=== PATIENT | female | born 1995 | race Caucasian/White ===

== ENCOUNTER 2016-12-29 21:04 | Emergency (ER) | payer MEDICAID ==
[~2016-12-29] VITALS: Ht 154.9 cm; Wt 70.6 kg
[~2016-12-29 21:04] MED LIST: HYDRO2.5%T TOP; MICO2CRE4 TOP; PRED20 PO
[2016-12-29 21:07] VITALS: BP 106/79; PULSE 110; RESP 20; TEMP 98.3; O2SAT 97
[2016-12-29 21:44] LABS: BLOOD, URINE NEG (NEG); GLUCOSE,URINE NEG (NEG); KETONE, URINE TRACE mg/dL (NEG); NITRITE,URINE NEG (NEG)
[2016-12-29] MEDS ORDERED: ONDANSETRON HCL 4 MG/2 ML VIAL IV PUSH ONE (21:45)
[2016-12-29] MEDS ORDERED: SODIUM CHLOR 0.9% 1000 ML INJ 1,000 ML IV ONE ×2 (21:45→22:30)
[2016-12-29] MEDS ORDERED: PANTOPRAZOLE SODIUM 40 MG VIAL IVP ONE (21:45)
[2016-12-29 21:51] LABS: BACTERIA, URINE RARE /hpf; COMMENT (UR) CULT NOT INDICATED; CULTURE IF INDICATED CULT NOT INDICATED; SQUAMOUS EPITHELIAL CELL URINE > 8 /hpf (0-5); URINE COLOR YELLOW (YELLW/STRAW); WBC, URINE 0-2 /hpf (0-5)
--- NOTE | 2016-12-29 21:52 | PD ---
HPI Chief Complaint: Flank/Kidney Pain Time Seen by Provider: 21:27 Travel History International Travel<30 days: No Contact w/Intl Traveler<30days: No Traveled to known affect area: No History of Present Illness HPI Patient 21-year-old female who presents to emergency room complaints of bilateral flank pain with dysuria, urinary urgency and frequency, hesitancy and dysuria. Patient reports that she has not been feeling well since yesterday, that she has been having epigastric pain with nausea and vomiting. Patient went to an outside hospital and had a blood work as well as CT of abdomen and pelvis with contrast, reports that they were looking for a gallbladder problem but reports that her gallbladder was "fine." Patient was told that she had a white blood cell count of 17,000 and had bacteria in her urine, reports that she was sent home with a prescription for [place] as well as for Zofran. Patient reports that she still is not feeling any better, reports that she has symptoms similar to when she has had a bladder infection the past. Patient reports "I think that I have a bladder infection and I am not sure why I wasn't treated for one last night." Patient denies any fevers or chills, reports that she has been having episodes of diarrhea. PFSH Past Medical History Developmental Delay: No Diminished Hearing: No Genitourinary: Yes (UTI'S) Neurologic: Yes (VASO-VAGAL RESPONSE; SYNCOPE) Immunizations Current: Yes ?: Unknown LMP: 2 WEEKS AGO : 1 Para: 1 Past Surgical History Surgical History: No Previous Surgery Social History Alcohol Use: No Tobacco Use: No Substance Use: No Allergies-Medications (Allergen,Severity, Reaction): Coded Allergies: Dilaudid (Verified Allergy, Severe, throat closes, 12/29/16) Macrobid (Verified Allergy, Severe, TONGUE SWELLS, 12/29/16) Rocephin (Verified Allergy, Severe, tightness of chest, 12/29/16) Reported Meds & Prescriptions Reported Meds & Active Scripts Active Deltasone (Prednisone) 20 Mg Tab 20 Mg PO BID Miconazole Nitrate 2 % Cre 1 Applic TOP BID 30 Days APPLY TO: Hydrocortisone 2.5 % Oin 2.5 % TOP BID 30 Days Review of Systems General / Constitutional: No: Fever, Chills Eyes: No: Visual changes HENT: No: Headaches Cardiovascular: No: Chest Pain or Discomfort Respiratory: No: Shortness of Breath Gastrointestinal: Positive: Nausea, Vomiting, No: Diarrhea, Abdominal Pain Genitourinary: Positive: Urgency, Frequency, Dysuria, Flank Pain, No: Pelvic Pain Musculoskeletal: No: Pain Skin: No Rash Neurologic: No: Weakness Psychiatric: No: Depression Endocrine: No: Polydipsia Hematologic/Lymphatic: No: Easy Bruising Physical Exam Narrative GENERAL: Mild distress SKIN: Focused skin assessment warm/dry. HEAD: Atraumatic. Normocephalic. EYES: Pupils equal and round. No scleral icterus. No injection or drainage. ENT: No nasal bleeding or discharge. Mucous membranes pink and moist. NECK: Trachea midline. No JVD. CARDIOVASCULAR: Regular rate and rhythm. No murmur appreciated. RESPIRATORY: No accessory muscle use. Clear to auscultation. Breath sounds equal bilaterally. GASTROINTESTINAL: Abdomen soft, non-tender, nondistended. Hepatic and splenic margins not palpable. Patient with bilateral flank pain MUSCULOSKELETAL: No obvious deformities. No clubbing. No cyanosis. No edema. NEUROLOGICAL: Awake and alert. No obvious cranial nerve deficits. Motor grossly within normal limits. Normal speech. PSYCHIATRIC: Appropriate mood and affect; insight and judgment normal. Data Data Last Documented VS Vital Signs Date Time Temp Pulse Resp B/P Pulse Ox O2 Delivery O2 Flow Rate FiO2 12/29/16 21:07 98.3 110 20 106/79 97 Orders Urinalysis - C+S If Indicated (12/29/16 21:33) Complete Blood Count With Diff (12/29/16 21:41) Comprehensive Metabolic Panel (12/29/16 21:41) Ed Urine Pregnancytest Poc (12/29/16 21:41) Sodium Chlor 0.9% 1000 Ml Inj (Ns 1000 M (12/29/16 21:45) Ondansetron Inj (Zofran Inj) (12/29/16 21:45) Pantoprazole Inj (Protonix Inj) (12/29/16 21:45) Sodium Chlor 0.9% 1000 Ml Inj (Ns 1000 M (12/29/16 22:30) Potassium Chloride (Kcl) (12/29/16 22:45) Labs Laboratory Tests Test 12/29/16 12/29/16 21:40 22:00 Urine Color YELLOW Urine Turbidity SLIGHT Urine pH 6.0 Urine Specific [place] 1.026 Urine Protein TRACE mg/dL Urine Glucose (UA) NEG mg/dL Urine Ketones TRACE mg/dL Urine Occult Blood NEG Urine Nitrite NEG Urine Bilirubin NEG Urine Leukocyte Esterase NEG Urine WBC 0-2 /hpf Urine Squamous Epithelial > 8 /hpf Cells Urine Bacteria RARE /hpf Microscopic Urinalysis Comment CULT NOT INDICATED White Blood Count 10.3 TH/MM3 Red Blood Count 5.71 MIL/MM3 Hemoglobin 11.2 GM/DL Hematocrit 34.6 % Mean Corpuscular Volume 60.6 FL Mean Corpuscular Hemoglobin 19.6 PG Mean Corpuscular Hemoglobin 32.4 % Concent Red Cell Distribution Width 13.9 % Platelet Count 198 TH/MM3 Mean Platelet Volume 8.3 FL Neutrophils (%) (Auto) 82.8 % Lymphocytes (%) (Auto) 8.0 % Monocytes (%) (Auto) 8.2 % Eosinophils (%) (Auto) 0.7 % Basophils (%) (Auto) 0.3 % Neutrophils # (Auto) 8.6 TH/MM3 Lymphocytes # (Auto) 0.8 TH/MM3 Monocytes # (Auto) 0.8 TH/MM3 Eosinophils # (Auto) 0.1 TH/MM3 Basophils # (Auto) 0.0 TH/MM3 CBC Comment AUTO DIFF Differential Comment AUTO DIFF CONFIRMED Basophilic Stippling FAINT Tear Drop Cells 1+ Ovalocytes 1+ Sodium Level 139 MEQ/L Potassium Level 3.1 MEQ/L Chloride Level 104 MEQ/L Carbon Dioxide Level 28.6 MEQ/L Anion Gap 6 MEQ/L Blood Urea Nitrogen 15 MG/DL Creatinine 0.69 MG/DL Estimat Glomerular Filtration 106 ML/MIN Rate Random Glucose 90 MG/DL Calcium Level 7.6 MG/DL Total Bilirubin 0.7 MG/DL Aspartate Amino Transf 16 U/L (AST/SGOT) Alanine Aminotransferase 21 U/L (ALT/SGPT) Alkaline Phosphatase 58 U/L Total Protein 7.1 GM/DL Albumin 3.5 GM/DL [facility] Medical Decision Making Medical Screen Exam Complete: Yes Emergency Medical Condition: Yes Interpretation(s) Vital Signs Date Time Temp Pulse Resp B/P Pulse Ox O2 Delivery O2 Flow Rate FiO2 12/29/16 21:07 98.3 110 20 106/79 97 Differential Diagnosis Differential includes pyelonephritis, cystitis, gastroenteritis, electrolyte abnormality Narrative Course Patient is a 21-year-old female who presents to emergency room with complaints of bilateral flank pain with dysuria, urinary urgency and frequency. Patient was seen last night at [facility] and had studies including ct studies of her abdomen and pelvis. She was told that she had a gi bug and was sent home on norco and zofran. Patient reports that she is still not feeling any better and thinks that she may have a bladder/kidney infection. Reports that she was told that she had bacteria in her urine yesterday but wasn' t treated for a uti. Vital signs reviewed. Patient is tachycardic with HR of 110. Labs including UA ordered. IV fluids as well as Zofran ordered as well. Laboratory Tests Test 12/29/16 12/29/16 21:40 22:00 Urine Color YELLOW (YELLW/STRAW) Urine Turbidity SLIGHT (CLEAR) Urine pH 6.0 (5.0-8.5) Urine Specific [place] 1.026 (1.002-1.035) Urine Protein TRACE mg/dL (NEG-TRACE) Urine Glucose (UA) NEG mg/dL (NEG) Urine Ketones TRACE mg/dL (NEG) Urine Occult Blood NEG (NEG) Urine Nitrite NEG (NEG) Urine Bilirubin NEG (NEG) Urine Leukocyte Esterase NEG (NEG) Urine WBC 0-2 /hpf (0-5) Urine Squamous Epithelial > 8 /hpf (0-5) Cells Urine Bacteria RARE /hpf (NONE) Microscopic Urinalysis Comment CULT NOT INDICATED White Blood Count 10.3 TH/MM3 (4.0-11.0) Red Blood Count 5.71 MIL/MM3 (4.00-5.30) Hemoglobin 11.2 GM/DL (11.6-15.3) Hematocrit 34.6 % (35.0-46.0) Mean Corpuscular Volume 60.6 FL (80.0-100.0) Mean Corpuscular Hemoglobin 19.6 PG (27.0-34.0) Mean Corpuscular Hemoglobin 32.4 % Concent (32.0-36.0) Red Cell Distribution Width 13.9 % (11.6-17.2) Platelet Count 198 TH/MM3 (150-450) Mean Platelet Volume 8.3 FL (7.0-11.0) Neutrophils (%) (Auto) 82.8 % (16.0-70.0) Lymphocytes (%) (Auto) 8.0 % (9.0-44.0) Monocytes (%) (Auto) 8.2 % (0.0-8.0) Eosinophils (%) (Auto) 0.7 % (0.0-4.0) Basophils (%) (Auto) 0.3 % (0.0-2.0) Neutrophils # (Auto) 8.6 TH/MM3 (1.8-7.7) Lymphocytes # (Auto) 0.8 TH/MM3 (1.0-4.8) Monocytes # (Auto) 0.8 TH/MM3 (0-0.9) Eosinophils # (Auto) 0.1 TH/MM3 (0-0.4) Basophils # (Auto) 0.0 TH/MM3 (0-0.2) CBC Comment AUTO DIFF Sodium Level 139 MEQ/L (136-145) Potassium Level 3.1 MEQ/L (3.5-5.1) Chloride Level 104 MEQ/L (98-107) Carbon Dioxide Level 28.6 MEQ/L (21.0-32.0) Anion Gap 6 MEQ/L (5-15) Blood Urea Nitrogen 15 MG/DL (7-18) Creatinine 0.69 MG/DL (0.50-1.00) Estimat Glomerular Filtration 106 ML/MIN Rate (>89) Random Glucose 90 MG/DL (74-106) Calcium Level 7.6 MG/DL (8.5-10.1) Total Bilirubin 0.7 MG/DL (0.2-1.0) Aspartate Amino Transf 16 U/L (15-37) (AST/SGOT) Alanine Aminotransferase 21 U/L (10-53) (ALT/SGPT) Alkaline Phosphatase 58 U/L (45-117) Total Protein 7.1 GM/DL (6.4-8.2) Albumin 3.5 GM/DL (3.4-5.0) Vital Signs Date Time Temp Pulse Resp B/P Pulse Ox O2 Delivery O2 Flow Rate FiO2 12/29/16 21:07 98.3 110 20 106/79 97 WBC 10.3, hemoglobin 11.2, hematocrit 34.6, platelets 198 Sodium 139, potassium 3.1, BUN 15, creatinine 0.69, glucose 90, LFTs wnl UA: Trace ketones, negative nitrites, negative leuk esterase, 0-2 white blood cells, rare bacteria All labs and studies reviewed with patient in detail. Patient with no obvious signs of infection at this time. Denies pelvic pain/pelvic discharge/bleeding. VSS, Labs are reassuring. Plan to have patient follow up with her primary care doctor. Signs and symptoms of when to return to ER was reviewed with patient and her mother in detail. Diagnosis Primary Impression: Nausea & vomiting Qualified Code: R11.2 - Non-intractable vomiting with nausea, unspecified vomiting type Additional Impressions: Dehydration Flank pain Hypokalemia Patient Instructions: General Instructions Additional Instructions: Please follow-up with your primary care doctor Take all medications as prescribed Return to ER if symptoms worsen or progress Return to ER as needed Please drink plenty of fluids Disposition: 01 DISCHARGE HOME Condition: Stable Candace Nicholas DO Dec 29, 2016 21:52
[2016-12-29 22:09] LABS: AUTOMATED NEUTROPHIL # 8.6 TH/MM3 (1.8-7.7); BASOPHIL % 0.3 % (0.0-2.0); EOSINOPHIL # 0.1 TH/MM3 (0-0.4); EOSINOPHIL % 0.7 % (0.0-4.0); HEMATOCRIT 34.6 % (35.0-46.0); LYMPHOCYTE # 0.8 TH/MM3 (1.0-4.8); MEAN CELL VOLUME 60.6 FL (80.0-100.0); MEAN CORPUSCULAR HEMOGLOBIN 19.6 PG (27.0-34.0); MEAN CORPUSCULAR HGB CONC 32.4 % (32.0-36.0); MONO % 8.2 % (0.0-8.0); NEUT % 82.8 % (16.0-70.0); PLATELET COUNT 198 TH/MM3 (150-450); RED BLOOD COUNT 5.71 MIL/MM3 (4.00-5.30); RED CELL DISTRIBUTION WIDTH 13.9 % (11.6-17.2); WHITE BLOOD COUNT 10.3 TH/MM3 (4.0-11.0)
[2016-12-29 22:14] LABS: HEMO FLAGS AUTO DIFF
[2016-12-29 22:16] LABS: CHLORIDE 104 MEQ/L (98-107); POTASSIUM 3.1 MEQ/L (3.5-5.1); SODIUM (NA) 139 MEQ/L (136-145)
[2016-12-29 22:19] LABS: ANION GAP 6 MEQ/L (5-15); BICARBONATE 28.6 MEQ/L (21.0-32.0); BLOOD UREA NITROGEN 15 MG/DL (7-18)
[2016-12-29 22:22] LABS: ALT (GPT) 21 U/L (10-53); AST (GOT) 16 U/L (15-37)
[2016-12-29 22:23] LABS: GLOMERULAR FILTRATION RATE 106 ML/MIN (>89)
[2016-12-29 22:24] LABS: TOTAL BILIRUBIN ADULT 0.7 MG/DL (0.2-1.0)
[2016-12-29 22:25] LABS: ALKALINE PHOSPHATASE 58 U/L (45-117)
[2016-12-29] MEDS ORDERED: POTASSIUM CHLORIDE 10 MEQ CONTROLLED RELEASE TAB PO ONE (22:45)
[2016-12-29 22:51] LABS: OVALOCYTES 1+ (NORMAL); TEARDROP RBCS 1+ (NORMAL)
[2016-12-29 22:52] LABS: SCAN/DIFF AUTO DIFF CONFIRMED
[2016-12-29 22:59] VITALS: BP 100/54; PULSE 94; RESP 16; O2SAT 100
[2016-12-29 23:27] VITALS: BP 109/66
== END 2016-12-29 23:32 | disposition home or self-care (01) ==
LOC: PHED 21:04
DX: R11.2 Nausea with vomiting, unspecified (principal); E86.0 Dehydration; R10.9 Unspecified abdominal pain; E87.6 Hypokalemia
CPT/HCPCS: 80053; 81001; 84703; 85025; 96360; 99284; J7030

== ENCOUNTER 2017-02-12 11:07 | Emergency (ER) | payer MEDICAID ==
[2017-02-12] MEDS ORDERED: IBUPROFEN 600 MG TAB ONE (13:24)
--- NOTE | 2017-02-12 14:18 | RADRPT ---
EXAM DATE/TIME: 02/12/2017 12:28 [place] COMPARISON: No previous studies available for comparison. INDICATIONS : Fall. Left great toe injury. Pain and swelling. MEDICAL HISTORY : None. SURGICAL HISTORY : None. ENCOUNTER: Initial ACUITY: 1 day PAIN SCORE: 7/10 LOCATION: Left lateral FINDINGS: Examination of the first digit of the left foot demonstrates small ossified density adjacent to the f irst metatarsal head. No fracture of the great toe. No radiopaque foreign bodies are seen. The soft tissues are intact. CONCLUSION: 1. Ossified density adjacent to the first metatarsal head could be fracture of indeterminate age. 2. No fracture of the great toe. Miguel Akers MD on February 12, 2017 at 12:36 Board Certified Radiologist. This report was verified electronically.
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
== END 2017-02-12 13:15 | disposition home or self-care (01) ==
LOC: PHED 11:07
DX: L98.8 Other specified disorders of the skin and subcutaneous tissue (principal)
CPT/HCPCS: 73660; 99283